=== PATIENT | male | born 1985 | race Asian ===

== ENCOUNTER 2018-03-22 12:48 | Emergency (ER) | payer SELFPAY ==
[2018-03-22 12:57] VITALS: BMI 25.7
[2018-03-22] MEDS ORDERED: DOCUSATE SODIUM 100 MG CAPSULE (FP) PO ONE ×2 (13:12→13:20)
[2018-03-22] MEDS ORDERED: LIDOCAINE HCL 2% JELLY (5 ML/TUBE) ONE ×2 (15:36→17:29)
--- NOTE | 2018-03-22 15:55 | PDOC ---
Attending Attestation - Resident Resident Name: Tianna Stanton - ED Attending Attestation I have performed the following: I have examined & evaluated the patient, The case was reviewed & discussed with the resident, I agree w/resident's findings & plan - HPI HPI: 03/22/18 15:50 32-year-old male presents with progressive rectal pain since yesterday afternoon , no fevers or chills, no bloody stool or vomiting. - Physicial Exam PE: 03/22/18 15:51 Afebrile. Prolapsed, partially thrombosed hemorrhoids that are tender to palpation, no induration or fluctuance - Medical Decision Making 03/22/18 15:52 32-year-old male with prolapsed and partially thrombosed hemorrhoids. Dr. Mustafa of general surgery consulted, performed clot excision, tolerated well. can D/C and f/u, stool softeners, understands return criteria
--- NOTE | 2018-03-22 16:02 | PDOC ---
History of Present Illness - General Chief Complaint: Rash Stated Complaint: PAIN Time Seen by Provider: 03/22/18 12:59 History Source: Patient Exam Limitations: No Limitations - History of Present Illness Initial Comments: 03/22/18 15:59 32m with no pmh presents with 2 days of Painful hemorrhoids, non-bleeding. Had hemorroids in the past but they always rescinded. This time he wasn;t able to push them back. No history of straining, sitting long hours in the toilets or HTN. No history of constipation. Past History - Past Medical History Allergies/Adverse Reactions: Allergies Allergy/AdvReac Type Severity Reaction Status Date / Time No Known Allergies Allergy Verified 03/22/18 12:53 Home Medications: Ambulatory Orders Docusate Sodium [Colace] 100 mg PO DAILY #30 capsule 03/22/18 COPD: No Other medical history: denies. - Suicide/Smoking/Psychosocial Hx Smoking History: Never smoked Have you smoked in the past 12 months: No Hx Alcohol Use: No Substance Use Type: None Review of Systems - Review of Systems Able to Perform ROS?: Yes Is the patient limited Nepali proficient: No Constitutional: No: Symptoms Reported HEENTM: No: Symptoms Reported Respiratory: No: Symptoms reported Cardiac (ROS): No: Symptoms Reported ABD/GI: Yes: See HPI. No: Abd. Pain w/ defecation, Blood Streaked Bowels, Constipated, Diarrhea, Poor Appetite, Poor Fluid Intake, Rectal Bleeding, Vomiting, Abdominal cramping : No: Symptoms Reported Musculoskeletal: No: Symptoms Reported Integumentary: No: Symptoms Reported Neurological: No: Symptoms reported All Other Systems: Reviewed and Negative *Physical Exam - Vital Signs Last Vital Signs Temp Pulse Resp BP Pulse Ox 97.5 F L 81 19 141/80 98 03/22/18 12:53 03/22/18 12:53 03/22/18 12:53 03/22/18 12:53 03/22/18 12:53 - Physical Exam General Appearance: Yes: Nourished, Appropriately Dressed, Apparent Distress, Mild Distress HEENT: positive: EOMI, DEE, Tonsillar Erythema Respiratory/Chest: positive: Lungs Clear, Normal Breath Sounds. negative: Chest Tender, Respiratory Distress Cardiovascular: positive: Regular Rhythm, Regular Rate, S1, S2 Gastrointestinal/Abdominal: positive: Normal Bowel Sounds, Flat, Soft. negative : Tender Rectal Exam: positive: hemorrhoids (Prolapsed internal hemmroidsx3, one of them seemingly thrombosed, all over the right half of the anus. ) ED Treatment Course - Medications Given in the ED: ED Medications Discontinued Medications Generic Name Dose Route Start Last Admin Trade Name Jessica PRN Reason Stop Dose Admin Docusate Sodium 100 mg 03/22/18 13:12 03/22/18 13:22 Colace - PO 03/22/18 13:13 100 mg ONCE ONE Administration Oxycodone/Acetaminophen 1 combo 03/22/18 13:11 03/22/18 13:22 Percocet 5/325 - PO 03/22/18 13:12 1 combo ONCE ONE Administration Medical Decision Making - Medical Decision Making 03/22/18 16:10 32, with no pmh presenting with thrombosed, prolapsed internal hemorrhoids. Consulted with Dr. Mustafa who came and incised the hemorrhoids, gave the patient recommendations. . *DC/Admit/Observation/Transfer Diagnosis at time of Disposition: Internal thrombosed hemorrhoids - Discharge Dispostion Disposition: HOME Condition at time of disposition: Improved Decision to Admit order: No - Referrals Referrals: Oleg Mustafa MD [Staff Physician] - - Patient Instructions Printed Discharge Instructions: Hemorrhoidectomy, Hemorrhoids Additional Instructions: Come back to the ER for any new, worsening or concerning symptom. Take sitz baths every days. Shower after each bowel movement Come back and see Dr. Mustafa in a week. - Post Discharge Activity
--- NOTE | 2018-03-22 16:23 | CONSULT ---
Consult Consult Specialty:: general surgery Referred by:: Rahat Reason for Consultation:: Thrombosed Hemorrhoid - History of Present Illness Chief Complaint: painful perianal swelling History of Present Illness: 32yo male no significant PMH, no history of constipation presented to the ED with perianal pain worsening for 3 days. He report having some difficulty with defecation once per month. Pain started 1 days ago and was exacerbated with a long drive from [place] to [place]. He now rated pain 6/10 and worse with examination of the area. He has seen some bleeding with bowel movements when he wipes. denied fever and chills. We were asked to assess. - History Source History Provided By: Patient, Medical Record Limitations to Obtaining History: No Limitations - Alcohol/Substance Use Hx Alcohol Use: No - Smoking History Smoking history: Never smoked Have you smoked in the past 12 months: No - Social History Usual Living Arrangement: With Spouse ADL: Independent Place of : Other History of Recent Travel: Yes Home Medications - Allergies Allergies/Adverse Reactions: Allergies Allergy/AdvReac Type Severity Reaction Status Date / Time No Known Allergies Allergy Verified 03/22/18 12:53 - Home Medications Home Medications: Ambulatory Orders Docusate Sodium [Colace] 100 mg PO DAILY #30 capsule 03/22/18 Lidocaine 2% Jelly [Xylocaine 2% Jelly -] 1 applic TP BID #3 tube 03/22/18 Review of Systems - Review of Systems Constitutional: denies: Chills, Fever Eyes: denies: Blind Spots, Recent Change in Vision HENT: denies: Difficult Swallowing, Throat Pain Neck: denies: Swollen Glands, Tenderness Cardiovascular: denies: Chest Pain, Palpitations Respiratory: denies: Cough, SOB Gastrointestinal: reports: Constipation. denies: Abdominal Pain, Diarrhea Genitourinary: denies: Discharge, Dysuria Breasts: reports: No Symptoms Reported. denies: Pain Musculoskeletal: denies: Back Pain, Muscle Cramps Integumentary: denies: Eczema, Lesions, Lump Neurological: denies: Seizure, Syncope Endocrine: denies: Unexplained Weight Gain, Unexplained Weight Loss Hematology/Lymphatic: denies: Easily Bruised, Excessive Bleeding Psychiatric: denies: Anxiety, Depression Physical Exam Vital Signs: Vital Signs Temperature 97.5 F L 03/22/18 12:53 Pulse Rate 81 03/22/18 12:53 Respiratory Rate 19 03/22/18 12:53 Blood Pressure 141/80 03/22/18 12:53 O2 Sat by Pulse Oximetry (%) 98 03/22/18 12:53 Vital Signs Period Temp Pulse Resp BP Sys/Barber Pulse Ox Last 24 Hr 97.5 F 81 19 141/80 98 Constitutional: Yes: Well Nourished, No Distress, Calm Eyes: Yes: Conjunctiva Clear, EOM Intact HENT: Yes: Atraumatic, Normocephalic Neck: Yes: Supple, Trachea Midline Cardiovascular: Yes: Regular Rate and Rhythm, S1, S2 Respiratory: Yes: Regular, CTA Bilaterally Gastrointestinal: Yes: Normal Bowel Sounds, Soft. No: Abdomen, Obese, Tenderness ...Rectal Exam: Yes: Guaiac Positive, Hemorrhoids/Internal (6to10 oclock position inflammed and thrimbosed hemorrhoid). No: Hemorrhoids/External, Inflammation, Mass Renal/: No: CVA Tenderness - Left, CVA Tenderness - Right Musculoskeletal: No: Muscle Pain, Muscle Weakness Extremities: No: Cool, Cyanosis Edema: No Peripheral Pulses WNL: Yes Integumentary: No: Erythema, Incision, Jaundice Neurological: Yes: Alert, Oriented Psychiatric: Yes: Alert, Oriented Problem List - Problems (1) Internal thrombosed hemorrhoids Assessment/Plan: 32yo male with thrombosed hemorrhoid Bed side I&D of hemorrhoid Discussed with patient risks, benefits and alternatives of incision and drainage of thrombosed hemorrhoid, including but not limited to bleeding, infection, injury to adjacent structures, leak or injury, abscess, fistula or fissure, need for further procedures, ; alternatives include antibiotics, delayed or no surgery - risks of this include failure of nonoperative therapy, sepsis, recurrence, . Patient desires to proceed with the procedure. Code(s): K64.5 - PERIANAL VENOUS THROMBOSIS (2) Anal or rectal pain Code(s): K62.89 - OTHER SPECIFIED DISEASES OF ANUS AND RECTUM
--- NOTE | 2018-03-22 16:27 | PROC ---
Incision and Drainage Indication/Location: perianal 6 to 10 oclock Risks and Benefits Explained: Yes Consent on Chart: Yes Betadine cleansed: Yes Anesthesia: 1% Lidocaine Blade Size: Scissior Drainage: thrombosed hemorrhoids Irrigated with Normal Saline: Yes Plain packing: Yes (gauze sponge) Sterile Dressing Applied: Yes - Remarks Remarks: acutely thrombosed internal hemorrhoid, opened and clots ecpressed all pillars explored
[2018-03-22] MEDS ORDERED: LIDOCAINE HCL 2% JELLY (5 ML/TUBE) TP ONE (17:29)
[2018-03-22 18:01] VITALS: BP 120/74; PULSE 85; TEMP 98.5
== END 2018-03-22 17:35 | disposition home or self-care (01) ==
LOC: JER 12:48
PROC: 069Y0ZZ Drainage of Lower Vein, Open Approach (ICD-10-PCS; principal; 2018-03-22)
DX: K64.5 Perianal venous thrombosis (principal); K59.00 Constipation, unspecified
CPT/HCPCS: 99281-25